=== PATIENT | female | born 1990 | race Two or more races ===

== ENCOUNTER 2024-12-29 01:50 | Emergency (ER) | payer OTHER ==
[~2024-12-29] VITALS: Ht 170.2 cm; Wt 65.9 kg
[2024-12-29 01:55] VITALS: BP 138/91; PULSE 66; RESP 16; TEMP 98.3; O2SAT 100
== END 2024-12-29 06:16 | disposition home or self-care (01) ==
LOC: EMS 01:54
DX: F41.9 Anxiety disorder, unspecified (principal); F12.90 Cannabis use, unspecified, uncomplicated; F17.210 Nicotine dependence, cigarettes, uncomplicated; F22 Delusional disorders; Z98.890 Other specified postprocedural states; F43.10 Post-traumatic stress disorder, unspecified
CPT/HCPCS: 99283